=== PATIENT | male | born 1935 | race African-American/Black ===

== ENCOUNTER 2017-04-16 12:18 | Inpatient (IN) | payer MEDICARE, OTHER ==
[~2017-04-16] VITALS: Ht 165.1 cm; Wt 74.8 kg
[2017-04-16] MEDS ORDERED: AMLO5TAB4 PO (12:31)
[2017-04-16] MEDS ORDERED: ASPI-1159 PO (12:31)
[2017-04-16] MEDS ORDERED: FURO-152 PO (12:31)
[2017-04-16] MEDS ORDERED: ALBUTEROL (0.083%) 2.5MG/3ML NEB HHN STA (12:37)
[2017-04-16] MEDS ORDERED: METHYLPREDNISOLONE SOD SUCC 125 MG/2 ML VIAL IV STA (12:37)
[2017-04-16] MEDS ORDERED: IPRATROPIUM BROMIDE (0.02%) 0.5MG/2.5ML NEB HHN STA (12:37)
[2017-04-16 13:15] LABS: BASOPHILS % 0.6 % (0.0-2.0); EOSINOPHILS % 2.9 % (0.0-5.0); HEMATOCRIT. 43.1 % (42.0-52.0); HEMOGLOBIN. 14.1 g/dL (14.0-18.0); LYMPHOCYTES % 15.3 % (20.0-50.0); MEAN CORPUSCULAR HEMOGLOBIN 28.5 pg (28.0-32.0); MEAN CORPUSCULAR VOLUME 87.5 fL (80.0-94.0); MEAN PLATELET VOLUME 9.4 fl (7.4-10.4); MONOCYTES % 7.7 % (2.0-8.0); NEUTROPHILS % 73.5 % (40.0-76.0); PLATELET 192 x1000/uL (130-400); RED BLOOD CELL COUNT 4.92 mill/uL (4.7-6.1); RED CELL DISTRIBUTION WIDTH 14.9 % (11.6-14.6)
[2017-04-16 13:18] LABS: INR 1.1; PROTHROMBIN TIME 11.6 sec (9.4-11.6)
[2017-04-16 13:21] LABS: CARBON DIOXIDE 30 mEq/L (21-32); CHLORIDE 105 mEq/L (98-107)
[2017-04-16 13:27] LABS: TROPONIN I 0.08 ng/mL (0.00-0.04)
[2017-04-16] MEDS ORDERED: APIX2.5T PO (13:47)
[2017-04-16] MEDS ORDERED: CARV6.2548 PO (13:48)
[2017-04-16] MEDS ORDERED: LIP40 PO (13:50)
[2017-04-16] MEDS ORDERED: ASPIRIN 81MG TABLET PO ONE (14:00)
[2017-04-16] MEDS ORDERED: FUROSEMIDE 40MG/4ML VIAL IVP ONE (14:00)
[2017-04-16] MEDS ORDERED: ENOXAPARIN 80MG/0.8ML SYR SUBCUT ONE (16:00)
[2017-04-16] MEDS ORDERED: IPRATROPIUM/ALBUTEROL 0.5-3(2.5)MG/3ML NEB HHN PRN (17:30)
[2017-04-16] MEDS ORDERED: ACETAMINOPHEN 325MG TABLET PO PRN (19:30)
[2017-04-16] MEDS ORDERED: CLONIDINE 0.1MG TABLET PO PRN (19:30)
[2017-04-16] MEDS ORDERED: MAGNESIUM/ALUMINUM HYDROXIDE/SIMETHICONE 30ML UDC PO PRN (19:30)
[2017-04-16] MEDS ORDERED: IPRATROPIUM/ALBUTEROL 0.5-3(2.5)MG/3ML NEB INH PRN (19:30)
[2017-04-16] MEDS ORDERED: DIPHENHYDRAMINE 50MG/ML VIAL IV PRN (19:30)
[2017-04-16] MEDS ORDERED: ONDANSETRON HCL 4MG/2ML VIAL IV PRN (19:30)
[2017-04-16] MEDS ORDERED: ENOXAPARIN 80MG/0.8ML SYR SUBCUT NR (20:45)
[2017-04-16 21:29] VITALS: BP 161/76
[2017-04-16] MEDS: SODIUM CHLORIDE 0.9% INJ 3ML FLUSH IVF SCH (22:18)
[2017-04-17] VITALS: BP 128/50
[2017-04-17] MEDS: IPRATROPIUM/ALBUTEROL 0.5-3(2.5)MG/3ML NEB HHN SCH ×5 (01:26→20:18)
[2017-04-17 04:28] LABS: CLARITY URINE CLEAR (CLEAR); COLOR URINE YELLOW (YELLOW); GLUCOSE URINE NEGATIVE (NEGATIVE); KETONES URINE NEGATIVE (NEGATIVE); LEUKOCYTE ESTERASE URINE NEGATIVE (NEGATIVE); NITRITE URINE NEGATIVE (NEGATIVE); OCCULT BLOOD URINE NEGATIVE (NEGATIVE); PH URINE 5.5 (4.5-8.0); PROTEIN URINE NEGATIVE (NEGATIVE); SPECIFIC GRAVITY URINE 1.016 (1.005-1.030)
[2017-04-17 04:47] VITALS: BP 133/46
[2017-04-17] MEDS: SODIUM CHLORIDE 0.9% INJ 3ML FLUSH IVF SCH ×3 (04:55→20:43)
[2017-04-17] MEDS: GUAIFENESIN 200MG/10ML SUGAR FREE UDC PO PRN (04:55)
[2017-04-17 07:41] VITALS: BP 123/47
[2017-04-17 07:42] LABS: BASOPHILS % 0.1 % (0.0-2.0); EOSINOPHILS % 0.1 % (0.0-5.0); HEMATOCRIT. 44.2 % (42.0-52.0); HEMOGLOBIN. 14.8 g/dL (14.0-18.0); MEAN CORPUSCULAR HEMOGLOBIN 29.7 pg (28.0-32.0); MEAN CORPUSCULAR VOLUME 88.7 fL (80.0-94.0); MEAN PLATELET VOLUME 9.9 fl (7.4-10.4); MONOCYTES % 5.1 % (2.0-8.0); NEUTROPHILS % 75.7 % (40.0-76.0); PLATELET 193 x1000/uL (130-400); RED BLOOD CELL COUNT 4.98 mill/uL (4.7-6.1); RED CELL DISTRIBUTION WIDTH 14.9 % (11.6-14.6)
[2017-04-17] MEDS: ASPIRIN 81MG EC TABLET PO SCH (08:26)
[2017-04-17] MEDS: AMLODIPINE 5MG TABLET PO SCH (08:26)
[2017-04-17] MEDS: ENOXAPARIN 40MG/0.4ML SYR SUBCUT SCH (08:27)
[2017-04-17] MEDS: FUROSEMIDE 40MG/4ML VIAL IVP SCH (08:27)
[2017-04-17 09:07] LABS: CHLORIDE 100 mEq/L (98-107)
[2017-04-17 09:17] LABS: CARBON DIOXIDE 27 mEq/L (21-32); TROPONIN I 0.05 ng/mL (0.00-0.04)
[2017-04-17] MEDS: BUDESONIDE 0.5MG/2ML NEB HHN SCH ×2 (09:23→20:18)
[2017-04-17 12:00] VITALS: BP 126/42
[2017-04-17 16:00] VITALS: BP 128/45
[2017-04-17] MEDS ORDERED: MAGNESIUM HYDROXIDE 400MG/5ML 30ML UDC PO PRN (17:00)
[2017-04-17 20:00] VITALS: BP 139/42
[2017-04-18] VITALS: BP 130/48
[2017-04-18] MEDS: IPRATROPIUM/ALBUTEROL 0.5-3(2.5)MG/3ML NEB HHN SCH ×4 (00:24→21:04)
[2017-04-18] MEDS: GUAIFENESIN 200MG/10ML SUGAR FREE UDC PO PRN ×3 (02:56→14:58)
[2017-04-18 04:00] VITALS: BP 147/46
[2017-04-18] MEDS: SODIUM CHLORIDE 0.9% INJ 3ML FLUSH IVF SCH ×3 (05:19→21:27)
[2017-04-18 06:07] LABS: CARBON DIOXIDE 31 mEq/L (21-32); CHLORIDE 100 mEq/L (98-107)
[2017-04-18 06:11] LABS: BASOPHILS % 0.4 % (0.0-2.0); EOSINOPHILS % 3.9 % (0.0-5.0); HEMATOCRIT. 41.7 % (42.0-52.0); HEMOGLOBIN. 13.6 g/dL (14.0-18.0); LYMPHOCYTES % 23.1 % (20.0-50.0); MEAN CORPUSCULAR HEMOGLOBIN 28.6 pg (28.0-32.0); MEAN CORPUSCULAR VOLUME 87.5 fL (80.0-94.0); MEAN PLATELET VOLUME 9.7 fl (7.4-10.4); MONOCYTES % 8.5 % (2.0-8.0); NEUTROPHILS % 64.1 % (40.0-76.0); PLATELET 195 x1000/uL (130-400); RED BLOOD CELL COUNT 4.77 mill/uL (4.7-6.1); RED CELL DISTRIBUTION WIDTH 14.9 % (11.6-14.6)
[2017-04-18 08:00] VITALS: BP 174/51
[2017-04-18] MEDS: ASPIRIN 81MG EC TABLET PO SCH (08:07)
[2017-04-18] MEDS: ENOXAPARIN 40MG/0.4ML SYR SUBCUT SCH (08:08)
[2017-04-18] MEDS: FUROSEMIDE 40MG/4ML VIAL IVP SCH (08:08)
[2017-04-18] MEDS: AMLODIPINE 5MG TABLET PO SCH (08:08)
[2017-04-18] MEDS: BUDESONIDE 0.5MG/2ML NEB HHN SCH ×2 (09:34→21:04)
[2017-04-18] MEDS ORDERED: POTASSIUM CHLORIDE 10MEQ TABLET SR PO SCH (11:15)
[2017-04-18] MEDS: METHYLPREDNISOLONE SOD SUCC 125 MG/2 ML VIAL IV SCH ×2 (11:26→21:27)
[2017-04-18 12:00] VITALS: BP 149/51
[2017-04-18 16:00] VITALS: BP 141/58
[2017-04-18 20:00] VITALS: BP 164/55
[2017-04-19] VITALS: BP 142/54
[2017-04-19] MEDS: IPRATROPIUM/ALBUTEROL 0.5-3(2.5)MG/3ML NEB HHN SCH ×5 (01:15→16:00)
[2017-04-19 04:00] VITALS: BP 164/48
[2017-04-19] MEDS: SODIUM CHLORIDE 0.9% INJ 3ML FLUSH IVF SCH ×2 (05:53→14:01)
[2017-04-19] MEDS: METHYLPREDNISOLONE SOD SUCC 125 MG/2 ML VIAL IV SCH ×2 (05:53→14:02)
[2017-04-19] MEDS: GUAIFENESIN 200MG/10ML SUGAR FREE UDC PO PRN (06:39)
[2017-04-19 07:16] LABS: BASOPHILS % 0.2 % (0.0-2.0); HEMATOCRIT. 45.3 % (42.0-52.0); HEMOGLOBIN. 14.8 g/dL (14.0-18.0); MEAN CORPUSCULAR HEMOGLOBIN 28.8 pg (28.0-32.0); MEAN CORPUSCULAR VOLUME 88.5 fL (80.0-94.0); MEAN PLATELET VOLUME 9.6 fl (7.4-10.4); NEUTROPHILS % 78.8 % (40.0-76.0); PLATELET 212 x1000/uL (130-400); RED BLOOD CELL COUNT 5.12 mill/uL (4.7-6.1); RED CELL DISTRIBUTION WIDTH 14.9 % (11.6-14.6)
[2017-04-19 07:33] LABS: CARBON DIOXIDE 32 mEq/L (21-32); CHLORIDE 99 mEq/L (98-107)
[2017-04-19 08:00] VITALS: BP 169/50
[2017-04-19] MEDS ORDERED: FUROSEMIDE 40MG TABLET PO SCH (09:00)
[2017-04-19] MEDS: ENOXAPARIN 40MG/0.4ML SYR SUBCUT SCH (09:33)
[2017-04-19] MEDS: ASPIRIN 81MG EC TABLET PO SCH (09:33)
[2017-04-19] MEDS: AMLODIPINE 5MG TABLET PO SCH (09:34)
[2017-04-19] MEDS: BUDESONIDE 0.5MG/2ML NEB HHN SCH (09:42)
[2017-04-19 12:00] VITALS: BP 94/67
[2017-04-19 15:33] VITALS: BP 126/48
[2017-04-19 15:39] VITALS: BP 126/58
== END 2017-04-19 19:30 | disposition home or self-care (01) | DRG 291 ==
LOC: ER 13:13 → 8WST 15:05 → ENRESERV 20:08
PROVIDERS: ADMIT Internal Medicine; ATTEND Internal Medicine
DX: I11.0 Hypertensive heart disease with heart failure (principal); J96.00 Acute respiratory failure, unspecified whether with hypoxia or hypercapnia; J84.9 Interstitial pulmonary disease, unspecified; J44.1 Chronic obstructive pulmonary disease with (acute) exacerbation; I50.43 Acute on chronic combined systolic (congestive) and diastolic (congestive) heart failure; E87.6 Hypokalemia; E66.9 Obesity, unspecified; I49.1 Atrial premature depolarization; I49.3 Ventricular premature depolarization; E78.00 Pure hypercholesterolemia, unspecified; I44.0 Atrioventricular block, first degree; I45.10 Unspecified right bundle-branch block; I48.91 Unspecified atrial fibrillation; Z87.891 Personal history of nicotine dependence; Z79.82 Long term (current) use of aspirin; Z79.899 Other long term (current) drug therapy
CPT/HCPCS: 36415; 71010; 80048; 80053; 81003; 83735; 83880; 84484; 85025; 85610; 93005; 93306; 94640; 94664; 96374; 96375; 99291; J1650; J1940; J2930; J7030; J7611; J7620; J7626